=== PATIENT | male | born 1945 | race Caucasian/White ===

== ENCOUNTER → 2017-07-19 | Day surgery (SDC) | payer OTHER ==
[~2017-07-19] MED LIST: AMLODIPINE BESY10 MG PO; ASPIRIN81 M2 PO; CENTRUM SILVER1 EACH PO; FISH OIL 1,2001 CAP PO; IRBESARTAN-HCT1 EAC1 PO; JANUMET XR 1001 EACH PO; MELOXICAM15 MG PO; SIMVASTATIN20 MG PO; VITAMIN C500 M1 PO
--- NOTE | ~2017-07-19 | OR ---
Unit #: [id number] #: [id number] Patient: VALERIA SALAZAR [id number] [facility] [address] [facility]. [place], [place] [address] [id number] O MR#: [id number] NAME: VALERIA SALAZAR ROOM: Date of Procedure: 07/19/2017 Admission Date: 07/19/2017 Surgeon: Sreedhar Childers M.D. : 1945 Attending Physician: Sreedhar Childers M.D. Primary Care Physician: Juliette Campos M.D. OPERATIVE REPORT PREOPERATIVE DIAGNOSIS Family history of colon cancer, referral for colorectal cancer screening. POSTOPERATIVE DIAGNOSIS Normal colon and rectum. PROCEDURE PERFORMED Colonoscopy to cecum. ANESTHESIA Monitored anesthesia. INDICATIONS FOR PROCEDURE A 71-year-old gentleman with a first-degree relative with colon cancer. He is due for surveillance colonoscopy. DESCRIPTION OF PROCEDURE The patient was admitted to [facility], positively identified, transported to the endoscopy unit. 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 On rectal examination, there was no local anorectal pathology and on digital examination, there were no masses and his prostate was normal for age. Colonoscope was passed through the anal verge throughout the extent of the colon to the cecum, where the appendiceal orifice and ileocecal valve were photodocumented. On antegrade and retrograde visualization, no abnormalities were noted throughout the colon and rectum. In the rectal vault, there was no internal hemorrhoidal disease. The patient tolerated the procedure well and transported to recovery in stable condition. Findings were discussed with his . At this time, we would recommend a followup colonoscopy in 10 years if he remains otherwise asymptomatic. Dictated by... Kayden Link/navya TD: 07/19/2017 13:54 JOB #: [id number] CC: Juliette Campos M.D. Unit #: [id number] #: [id number] Patient: VALERIA SALAZAR OPERATIVE REPORT Page 1 of 1 X Sreedhar Childers MD X PROCEDURE OPERATIVE NOTE
--- NOTE | ~2017-07-19 | HP ---
Unit #: [id number] #: [id number] Patient: VALERIA SALAZAR [id number] [address] [place], [place] [address] [id number] O MR#: [id number] NAME: VALERIA SALAZAR ROOM: Age: Sex: M Admission Date: 07/19/2017 : 1945 Attending Physician: Sreedhar Childers M.D. Primary Care Physician: Juliette Campos M.D. HISTORY AND PHYSICAL HISTORY OF PRESENT ILLNESS Mr. Salazar is a 71-year-old gentleman who was sent for routine colorectal cancer surveillance because of a family history of colon cancer in a first degree relative. His last colonoscopy was normal, and he denies any symptoms. PAST MEDICAL HISTORY 1. Diabetes. 2. Hypertension. 3. Atherosclerotic coronary artery disease, status post angioplasty and stenting on three occasions. 4. Knee replacement. 5. Rotator cuff repair. 6. Depression. 7. Colonoscopy. ALLERGIES Morphine and Plavix. CURRENT MEDICATIONS 1. Janumet. 2. Vitamin D. 3. Simvastatin. 4. Irbesartan. 5. Aspirin. 6. Vitamin C. 7. Amlodipine. 8. Meloxicam. 9. Multi mineral supplement. 10. Fish oil. 11. [place]-3. IMMUNIZATIONS He has not had a recent flu vaccine. He has had a previous pneumonia vaccine. FAMILY HISTORY Atherosclerotic coronary artery disease, Alzheimer dementia, colon cancer. SOCIAL HISTORY with one child. Denies the use of alcohol or tobacco. He is retired. 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 REVIEW OF SYSTEMS Unit #: [id number] #: [id number] Patient: VALERIA SALAZAR Otherwise unremarkable. PHYSICAL EXAMINATION VITAL SIGNS: He is 5 feet 9 inches, 194 pounds. Blood pressure 134/75, heart rate 50 and regular, respirations 16, he is afebrile, O2 saturations 94% on room air. GENERAL: Awake, alert, and oriented. HEENT: Unremarkable. CARDIAC: Regular rhythm. LUNGS: Clear. ABDOMEN: Soft. EXTREMITIES: No edema. NEUROLOGICALLY: Grossly intact. ASSESSMENT AND PLAN A 71-year-old gentleman with a family history of colon cancer is due for surveillance. I discussed the procedure with the patient including risks, benefits, complications, and bowel prep. He understands and agrees to proceed. Dictated by Kayden Link/carlito TD: 07/19/2017 14:49 JOB #: [id number] HISTORY AND PHYSICAL Page 1 of 1 X Sreedhar Childers MD X HISTORY AND PHYSICAL
== END | disposition home or self-care (01) ==
LOC: COPS 10:31
DX: Z12.11 Encounter for screening for malignant neoplasm of colon (principal); I25.10 Atherosclerotic heart disease of native coronary artery without angina pectoris; E11.9 Type 2 diabetes mellitus without complications; I10 Essential (primary) hypertension; E78.5 Hyperlipidemia, unspecified; F32.9 Major depressive disorder, single episode, unspecified; Z80.0 Family history of malignant neoplasm of digestive organs; Z88.5 Allergy status to narcotic agent; Z88.8 Allergy status to other drugs, medicaments and biological substances; Z79.82 Long term (current) use of aspirin; Z79.1 Long term (current) use of non-steroidal anti-inflammatories (NSAID); Z79.899 Other long term (current) drug therapy; Z95.5 Presence of coronary angioplasty implant and graft; Z96.652 Presence of left artificial knee joint; Z98.890 Other specified postprocedural states
CPT/HCPCS: 82947